=== PATIENT | female | born 1975 | race Caucasian/White ===

== ENCOUNTER 2018-03-27 23:50 | Emergency (ER) | payer OTHER ==
[~2018-03-27] VITALS: Ht 165.1 cm; Wt 69.4 kg
--- NOTE | 2018-03-28 00:55 | ED GENERAL ADULT ---
History of Present Illness General Chief Complaint: Upper Extremity Problem Stated Complaint: ARM SWELLING AND PAIN Source: patient Exam Limitations: poor historian Vital Signs & Intake/Output Vital Signs & Intake/Output ED Intake and Output 03/29 0000 03/28 1200 Intake Total 0 Output Total Balance 0 Intake, Oral 0 Patient 153 lb Weight Allergies Coded Allergies: amoxicillin (UNKNOWN 03/29/18) Penicillins (Severe, GI UPSET 03/29/18) Reconcile Medications Bupropion HCl 100 MG TABLET 1 TAB PO BID anxiety (Reported) Celecoxib 200 MG CAPSULE 1 CAP PO DAILY pain (Reported) Cephalexin (Keflex) 500 MG CAPSULE 1 CAP PO 4 TIMES/DAY INFECTION Clonidine HCl 0.1 MG TABLET 1 TAB PO QPM tremors (Reported) Ibuprofen 800 MG TABLET 1 TAB PO TID PRN pain Lisdexamfetamine Dimesylate (Vyvanse) 60 MG CAPSULE 1 CAP PO QAM adhd ( Reported) Pregabalin (Lyrica) 150 MG CAPSULE 1 CAP PO BID pain (Reported) Quetiapine Fumarate 100 MG TABLET 1 TAB PO QPM anxiety (Reported) Sertraline HCl 100 MG TABLET 1 TAB PO DAILY anxiety (Reported) Sulfamethoxazole/Trimethoprim (Bactrim Ds Tablet) 800 MG-160 MG TABLET 1 TAB PO BID INFECTion Zolpidem Tartrate 10 MG TABLET 1 TAB PO QPMP sleep (Reported) Triage Note: PT TO TRIAGE WITH RIGHT WRIST PAIN SWELLING AND SOME REDDNESS FOR A COUPLE DAYS. PT HAS A HX OF RHEUMATOID ARTHRITIS. DENIES FEVERS. 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 Triage Nurses Notes Reviewed? yes Onset: Gradual Duration: day(s): (4) Timing: ongoing Severity: severe Modifying Factors: Improves With: rest. Worsens With: movement. : No Patient currently breastfeeds: No HPI: This is a 42-year-old female with history of rheumatoid arthritis on multiple immunosuppressive medications, mental illness, prior substance abuse, presented to the emergency department with pain and swelling of the right wrist. Patient states that the pain started on following a night out with her friend in [place]. Patient states that she drank heavily that night and may have fallen on the wrist. She denies any systemic symptoms but complains of severe pain, swelling, decreased movement of the right wrist. On further, repeated questioning, patient states that it is also possible that she may have injected intravenous drugs into the area of her right wrist on Wednesday evening. She thinks that she was using intravenous cocaine but she has not completely sure. She is not sure exactly where she stuck a needle but thinks it may have been either near the base of her thumb or in the area of the distal radius. (Ivan Cameron MD) Past History Travel History Traveled to [place] past 21 day No Medical History Any Pertinent Medical History? 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 No (Ivan Cameron MD) Review of Systems Review of Systems Constitutional: Reports: no symptoms. EENTM: Reports: no symptoms. Respiratory: Reports: no symptoms. Cardiovascular: Reports: no symptoms. GI: Reports: no symptoms. Musculoskeletal: Reports: joint pain. Skin: Reports: erythema. Neurological/Psychological: Reports: no symptoms. (Ivan Cameron MD) Physical Exam Physical Exam General Appearance: well developed/nourished, no apparent distress, alert, awake , anxious Head: atraumatic, normal appearance Eyes: Bilateral: normal appearance. Ears, Nose, Throat: hearing grossly normal, moist mucus membranes Neck: normal inspection, supple, full range of motion Respiratory: no respiratory distress Cardiovascular: regular rate/rhythm Gastrointestinal: soft, non-tender Back: normal inspection, normal range of motion Extremities: normal inspection Neurologic/Psych: no motor/sensory deficits, awake, alert, oriented x 3, normal gait Skin: warm/dry Comments: Patient has swelling, warmth, decreased range of motion to distal radius and proximal right wrist with significant tenderness to palpation. Core Measures ACS in differential dx? No CVA/TIA Diagnosis: No Sepsis Present: No Sepsis Focused Exam Completed? No (Ivan Cameron MD) Progress Differential Diagnoses I considered the following diagnoses in my evaluation of the patient: Fracture, RA flare, septic joint, soft tissue infection, necrotizing fasciitis, gout, pseudogout Plan of Care: Orders Procedure Date/time Status BLOOD CULTURE 06/04 0128 Active PARTIAL THROMBOPLASTIN TIME 03/28 51 Complete PROTHROMBIN TIME 03/28 51 Complete HIGH SENSITIVITY CRP 03/28 51 Complete COMPREHENSIVE METABOLIC PANEL 03/28 51 Complete CBC WITHOUT DIFFERENTIAL 03/28 51 Complete TYPE & SCREEN (NOT X-MATCH) 03/28 51 Complete Current Medications Sig/Daniel Start time Last Medication Dose Stop Time Status Admin Vancomycin HCl 1,500 MG ONCE ONE 03/28 100 CAN 03/28 101 Laboratory Tests 03/28/184: PT 12.1, INR 1.11, APTT 32 03/28/18 0130: Anion Gap 11, Estimated GFR > 60, BUN/Creatinine Ratio 15.0, Glucose 111 H, Calcium 9.7, Total Bilirubin 0.6, AST 76 H, ALT 34, Alkaline Phosphatase 97, C- React Prot High Sens > 15.0 H, Total Protein 7.4, Albumin 4.0, Globulin 3.4, Albumin/Globulin Ratio 1.2, CBC w Diff MAN DIFF ORDERED, RBC 3.66 L, MCV 93.7, MCH 31.8 H, MCHC 33.9, RDW 14.8 H, MPV 8.8, Gran % 83.8 H, Lymphocytes % 10.1 L, Monocytes % 5.1, Eosinophils % 0.7, Basophils % 0.3, Absolute Granulocytes 11.1 H, Absolute Lymphocytes 1.3, Absolute Monocytes 0.7 H, Absolute Eosinophils 0.1, Absolute Basophils 0, Platelet Estimate ADEQUATE, Ovalocytes 1+ Microbiology 03/28 204 BLOOD: Blood Culture - RECD 03/28 120 BLOOD: Blood Culture - RECD We will start with splinting, x-ray wrist, p.o. Motrin, labs, broad-spectrum antibiotics, unable to perform joint aspiration secondary to overlying cellulitis. There is not appear to be an obvious collection on [id number] ultrasound compared to the contralateral side. X-ray of the wrist is noncontributory. Case discussed with on-call orthopedic surgeon Aodlfo Urrutia MD he agrees with plan for broad-spectrum antibiotics and splinting with admission. Care signed out to Dr. Bishop, labs pending. Of note, patient is hesitant to be admitted to the hospital but agrees to stay for lab results. Patient is made aware the fact that this could be a significant infection and, given her immunocompromised status, will almost certainly require inpatient management with IV antibiotics for optimal outcome Initial ED EKG: none Hand-Off Endorsed To: Moses Bishop MD (Ivan Cameron MD) Diagnostic Imaging: Viewed by Me: Radiology Read. Discussed w/RAD: Radiology Read. Radiology Impression: PATIENT: LAURA PADILLA PRESENT AGE: 42 PATIENT ACCOUNT NO: [id number] : 75 LOCATION: [facility] ORDERING PHYSICIAN: Ivan Cameron MD SERVICE DATE: 03/28/18 EXAM TYPE: RAD - XRY-WRIST 2 VIEWS RIGHT EXAMINATION: XR WRIST, RIGHT CLINICAL INFORMATION: Wrist fracture COMPARISON: None TECHNIQUE: Two views of the right wrist. FINDINGS: Osseous alignment is anatomic. There are small calcifications anterior to the distal radius/ulna which have a chronic appearance. No acute fracture is seen in the wrist. Scattered lucencies in the carpal bones and bases of the second through fourth metacarpals are suggestive of cysts. There is suspected soft tissue swelling at the wrist. IMPRESSION: No acute fracture identified. Soft tissue swelling at the wrist. DICTATED BY: Marcos Adler MD DATE/TIME DICTATED:03/28/1849 HOME COMPANION:FLOR DATE/TIME TRANSCRIBED:49 CONFIDENTIAL, DO NOT COPY WITHOUT APPROPRIATE AUTHORIZATION. < Electronically signed in Other Vendor System> SIGNED BY: Marcos Adler MD 03/28/1855 (Moses Bishop MD) Departure Departure Disposition: STILL A PATIENT Condition: Stable Clinical Impression Primary Impression: Soft tissue infection Secondary Impressions: IV drug abuse, Wrist swelling Referrals: Patient Has No Primary Care Dr (PCP/Family) Departure Forms: Customer Survey General Discharge Information (Ivan Cameron MD) Departure Prescriptions: Current Visit Scripts Sulfamethoxazole/Trimethoprim (Bactrim Ds Tablet) 1 TAB PO BID #28 TAB Cephalexin (Keflex) 1 CAP PO 4 TIMES/DAY #56 CAP Ibuprofen 1 TAB PO TID PRN pain #30 TAB Comments 03/28/18, 3:03AM... given her immunosuppression (pt on humira and methotrexate), pt merits admission. However, she is adamant about leving against medical advice. I wrote for keflex/bactrim.. she will follow up if not improving. Pt signed AMA paperwork. Discussed at great length. Resident Co-Sign Statement Statement: ED Attending supervision documentation- [x] I saw and evaluated the patient. I have also reviewed all the pertinent lab results and diagnostic results. I agree with the findings and the plan of care as documented in the Resident's documentation. [] I have reviewed the ED Record and agree with the Resident's documentation. [] Additions or exceptions (if any) to the Resident's note and plan are summarized below: [] (Dario GREER,[facility]) Departure Comments 03/29/2018@0730 hours: Addendum from Dr. Reeder. I received a call from the lab stating that they had resulted one bottle of positive blood cultures, with gram- negative rods. The other bottles were negative. I discussed this with the patient directly over the phone after successfully reaching her at [phone]. She stated that she was feeling improved, was still afebrile, but did have some increased tightness of her arm/hand. I explained the importance of this blood culture and the possibility that it could be the indication of a very early and potentially even fatal infection. She stated that she would be getting follow- up with her PCP and possibly with her specialists at [facility]. I encouraged her to either do that and have them get her culture results, or instructed her to return here for reassessment. She is high risk given her intravenous drug use and her immunocompromise with immunomodulators for her rheumatoid arthritis. She exhibited good understanding. I discussed the case later with the director Dr. Jacques, who will continue to make contact with the patient to ensure adequate follow-up. (Varinder TOMLIN,Raheel) Critical Care Note Critical Care Note Critical Care Time: non-applicable (Rakesh GREER,Ivan)
[2018-03-28 01:42] LABS: ABSOLUTE BASOPHIL COUNT 0 /CUMM (0.0-0.2); ABSOLUTE EOSINOPHIL COUNT 0.1 /CUMM (0.0-0.7); ABSOLUTE GRANULOCYTE CT 11.1 /CUMM (1.4-6.5); ABSOLUTE LYMPH COUNT 1.3 /CUMM (1.2-3.4); ABSOLUTE MONOCYTE COUNT 0.7 /CUMM (0.10-0.60); BASOPHIL % 0.3 % (0.0-2.0); EOSINOPHIL % 0.7 % (0-5); HEMATOCRIT 34.3 % (37-47); MEAN CORPUSCULAR HGB 31.8 PG (27.0-31.0); MEAN CORPUSCULAR HGB CONC 33.9 G/DL (33.0-37.0); MEAN CORPUSCULAR VOLUME 93.7 FL (81.0-99.0); MEAN PLATELET VOLUME 8.8 FL (7.4-10.4); PLATELET COUNT 342 /CUMM (130-400); RBC DISTRIBUTION WIDTH 14.8 % (11.5-14.5); RED BLOOD CELL CT 3.66 /CUMM (4.20-5.40); WHITE BLOOD CELL COUNT 13.3 /CUMM (4.8-10.8)
[2018-03-28 01:44] LABS: GRANULOCYTE % 83.8 % (42.2-75.2)
[2018-03-28 02:20] LABS: PT 12.1 SEC (9.4-12.5); PTT 32 SEC (25-37)
[2018-03-28] MEDS ORDERED: BACTRIM DS TAB1 EACH PO (02:59)
[2018-03-28] MEDS ORDERED: KEFLEX500 M1 PO (02:59)
[2018-03-28] MEDS ORDERED: IBUPROFEN800 M1 PO (03:03)
[2018-03-28 03:48] VITALS: BP 110/70
[2018-03-29] MEDS ORDERED: PERCOCET 5-3251 EACH PO (18:01)
[2018-03-29] MEDS ORDERED: LYRICA150 M1 PO (21:24)
[2018-03-29] MEDS ORDERED: SERTRALINE HCL100 MG PO (21:24)
[2018-03-29] MEDS ORDERED: CELECOXIB200 M1 PO (21:24)
[2018-03-29] MEDS ORDERED: CLONIDINE HCL0.1 MG PO (21:25)
[2018-03-29] MEDS ORDERED: BUPROPION HCL100 M2 PO (21:25)
[2018-03-29] MEDS ORDERED: VYVANSE60 M1 PO (21:26)
[2018-03-29] MEDS ORDERED: QUETIAPINE FUM100 M1 PO (21:26)
[2018-03-29] MEDS ORDERED: ZOLPIDEM TARTRA10 M1 PO (21:26)
== END 2018-03-28 03:51 | disposition left against medical advice (07) ==
LOC: ERH 23:50
PROVIDERS: Student in an Organized Health Care Education/Training Program
DX: L08.9 Local infection of the skin and subcutaneous tissue, unspecified (principal); M25.431 Effusion, right wrist; F14.10 Cocaine abuse, uncomplicated
CPT/HCPCS: 73100-RT; 87040; 87071; J0713; J3370; J7040

== ENCOUNTER 2018-03-29 17:15 | Inpatient (IN) | payer OTHER ==
[~2018-03-29] VITALS: Ht 165.1 cm; Wt 69.4 kg
[~2018-03-29 17:15] MED LIST: BACTRIM DS TAB1 EACH PO; IBUPROFEN800 M1 PO; KEFLEX500 M1 PO
--- NOTE | 2018-03-29 17:46 | ED GENERAL ADULT ---
See Addendum History of Present Illness General Chief Complaint: Hand or Wrist Injury Stated Complaint: RIGHT HAND INFECTION PER PT Source: patient Exam Limitations: no limitations Vital Signs & Intake/Output Vital Signs & Intake/Output Vital Signs Date Time Temp Pulse Resp B/P B/P Pulse O2 O2 Flow FiO2 Mean Ox Delivery Rate 03/29 1742 97.3 105 20 131/70 98 Room Air Allergies Coded Allergies: amoxicillin (UNKNOWN 03/29/18) Penicillins (Severe, GI UPSET 03/29/18) Reconcile Medications Cephalexin (Keflex) 500 MG CAPSULE 1 CAP PO 4 TIMES/DAY INFECTION Ibuprofen 800 MG TABLET 1 TAB PO TID PRN pain Oxycodone HCl/Acetaminophen (Percocet 5-325 MG Tablet) 5 MG-325 MG TABLET 1 TAB PO ONCE PAIN Sulfamethoxazole/Trimethoprim (Bactrim Ds Tablet) 800 MG-160 MG TABLET 1 TAB PO BID INFECTion Triage Note: 42F RETURNS TO ED AFTER CALL BACK FROM DR MATOS FOR BLOOD CULTURES WITH GRAM NEGATIVE RODS. HAD INFECTION TO RIGHT HAND WHICH IS BETTER THAN INITIAL VISIT. HERE FOR ADMISSION. DENIES FEVERS/CHILLS. HAS BEEN ON KEFLEX AND BACTRIM Triage Nurses Notes Reviewed? yes Onset: Abrupt Duration: day(s): Timing: recent history : No Patient currently breastfeeds: No HPI: 03/29/18 5:45 pm 42 year old female presernts to the ED for + blood cultures. s/p IVDA TO RIGHT HAND. HISTORY OF RA, on Humira Past History Travel History Traveled to [place] past 21 day No Medical History Any Pertinent Medical History? 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 No Review of Systems Review of Systems Constitutional: Reports: fever. EENTM: Reports: no symptoms. Respiratory: Denies: short of breath. Cardiovascular: Denies: chest pain. GI: Reports: no symptoms. Genitourinary: Reports: no symptoms. Musculoskeletal: Reports: see HPI. Skin: Reports: see HPI. Neurological/Psychological: Reports: no symptoms. Hematologic/Endocrine: Reports: no symptoms. Immunologic/Allergic: Reports: no symptoms. Physical Exam Physical Exam General Appearance: alert, awake, anxious, mild distress Head: atraumatic, normal appearance Eyes: Bilateral: normal appearance, PERRL, EOMI. Ears, Nose, Throat: normal pharynx, normal ENT inspection, hearing grossly normal Neck: normal inspection, supple Respiratory: normal breath sounds, chest non-tender, no respiratory distress Cardiovascular: regular rate/rhythm, no murmur Peripheral Pulses: 4+ radial (R) Gastrointestinal: non-tender Back: normal range of motion Extremities: swelling, tenderness (dorsal right hand) Neurologic/Psych: no motor/sensory deficits, awake, alert, oriented x 3 Skin: intact (swelling dorsal righ hand) Core Measures ACS in differential dx? No CVA/TIA Diagnosis: No Sepsis Present: No Sepsis Focused Exam Completed? No Progress Differential Diagnoses I considered the following diagnoses in my evaluation of the patient: [ bacteremia, endocarditis, ] Plan of Care: Orders Procedure Date/time Status Add-on Test (ER Only) 03/29 1748 Active Saline Lock 03/29 1747 Active BLOOD CULTURE 03/29 1747 Active HUMAN BETA HCG SCREEN 03/29 1747 Active COMPREHENSIVE METABOLIC PANEL 03/29 1747 Active CBC WITHOUT DIFFERENTIAL 03/29 1747 Complete Current Medications Sig/Daniel Start time Last Medication Dose Stop Time Status Admin Vancomycin HCl 1,000 MG ONCE ONE 03/29 1800 AC Sodium Chloride 250 ML 03/29 1859 (Normal Saline 0.9%) Laboratory Tests 03/29/18 1807: Sodium Pending, Potassium Pending, Chloride Pending, Carbon Dioxide Pending, Anion Gap Pending, BUN Pending, Creatinine Pending, BUN/Creatinine Ratio Pending , Glucose Pending, Calcium Pending, Total Bilirubin Pending, AST Pending, ALT Pending, Alkaline Phosphatase Pending, Total Protein Pending, Albumin Pending, Globulin Pending, Albumin/Globulin Ratio Pending, Total Beta HCG NEGATIVE, CBC w Diff NO MAN DIFF REQ, RBC 3.70 L, MCV 93.3, MCH 31.6 H, MCHC 33.9, RDW 15.2 H , MPV 8.7, Gran % 75.8 H, Lymphocytes % 13.7 L, Monocytes % 7.0, Eosinophils % 3.0, Basophils % 0.5, Absolute Granulocytes 7.9 H, Absolute Lymphocytes 1.4, Absolute Monocytes 0.7 H, Absolute Eosinophils 0.3, Absolute Basophils 0.1 Microbiology 03/29 1815 BLOOD: Blood Culture - RECD 03/29 1807 BLOOD: Blood Culture - RECD Initial ED EKG: none, PENDING Departure Departure Disposition: STILL A PATIENT Condition: Stable Clinical Impression Primary Impression: Bacteremia Referrals: Patient Has No Primary Care Dr (PCP/Family) Departure Forms: Customer Survey General Discharge Information Prescriptions: Current Visit Scripts Oxycodone HCl/Acetaminophen (Percocet 5-325 MG Tablet) 1 TAB PO ONCE #1 TAB Admission Note Spoke With: Solo GREER,Terrygerald Documentation of Exam: Documentation of any treatments & extenuating circumstances including Concerns Regarding Discharge (functional status, medication knowledge or non-compliance, living conditions, etc.) that warrant an admission rather than observation: [ Patient needs IV antibiotics, ID consult, echocardiogram ] Critical Care Note Critical Care Note Critical Care Time: non-applicable
[2018-03-29] MEDS ORDERED: PERCOCET 5-3251 EACH PO (18:01)
[2018-03-29 18:39] LABS: ABSOLUTE BASOPHIL COUNT 0.1 /CUMM (0.0-0.2); ABSOLUTE EOSINOPHIL COUNT 0.3 /CUMM (0.0-0.7); ABSOLUTE GRANULOCYTE CT 7.9 /CUMM (1.4-6.5); ABSOLUTE LYMPH COUNT 1.4 /CUMM (1.2-3.4); ABSOLUTE MONOCYTE COUNT 0.7 /CUMM (0.10-0.60); BASOPHIL % 0.5 % (0.0-2.0); GRANULOCYTE % 75.8 % (42.2-75.2); HEMATOCRIT 34.5 % (37-47); MEAN CORPUSCULAR HGB 31.6 PG (27.0-31.0); MEAN CORPUSCULAR HGB CONC 33.9 G/DL (33.0-37.0); MEAN CORPUSCULAR VOLUME 93.3 FL (81.0-99.0); MEAN PLATELET VOLUME 8.7 FL (7.4-10.4); PLATELET COUNT 346 /CUMM (130-400); RBC DISTRIBUTION WIDTH 15.2 % (11.5-14.5); WHITE BLOOD CELL COUNT 10.4 /CUMM (4.8-10.8)
--- NOTE | 2018-03-29 20:24 | History & Physical ---
Tali GREER,Torin 03/29/182023: General Information and HPI MD Statement: I have seen and personally examined LAURA GALLEGO and documented this H&P. The patient is a 42 year old F who presented with a patient stated chief complaint of [cellulitis]. Source of Information: patient, old records Exam Limitations: no limitations History of Present Illness: Patient is a 42-year-old female with a PMH significant for rheumatoid arthritis on Humira, migraines, anxiety, depression, ADHD, thrombophilia, IV drug abuse with history of heroin abuse, last used approximately 6 years ago, and IV and intranasal cocaine abuse last used recently who presented to the [facility] ED on 03/27/18 for worsening right wrist and hand swelling, pain, rash, she was diagnosed with cellulitis and discharged on p.o. antibiotics. She was called by Dr. Jacques of the ED and told to return due to positive blood cultures. Patient reportedly injected cocaine into multiple sites approximately 1 week prior to presentation, she noted slow progression of redness, swelling, pain of her right hand and wrist up until 03/26/18 when she then took her normal dose of Humira, after which she noticed rapid progression of redness, swelling, pain. She was given Keflex and Bactrim in the [facility] ED, and reported significant improvement since discharge. She continues to report continued improvement leading up to today, she denies any nausea, vomiting, fever, chills, chest pain, shortness of breath, syncope, diaphoresis. Patient requests that her not be informed of her recent IV drug use. 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 Home Who Do You Live With? spouse, child Services at Home: None Primary Language: Ugandan Smoking Status: Current Everyday Smoker ETOH Use: occasional use Illicit Drug Use: cocaine Living Will? no Functional Ability ADLs Independent: dressing, eating, toileting, bathing. Ambulation: independent IADLs Independent: shopping, housework, finances, food prep, telephone, transportation , medication admin. Review of Systems Review of Systems Constitutional: Denies: chills, fever, malaise. EENTM: Denies: blurred vision, double vision, visual changes. Cardiovascular: Denies: chest pain, orthopena, palpitations, syncope. Respiratory: Reports: cough (chronic due to allergies). Denies: short of breath. GI: Denies: abdominal pain, diarrhea, distention, bowel incontinence, melena, nausea. Genitourinary: Denies: discharge, dysuria, frequency, hematuria. Musculoskeletal: Reports: joint pain, joint swelling. Skin: Reports: rash. Exam & Diagnostic Data Last 24 Hrs of Vital Signs/I&O Vital Signs Date Time Temp Pulse Resp B/P B/P Pulse O2 O2 Flow FiO2 Mean Ox Delivery Rate 03/29 2148 98.6 94 20 120/62 97 Room Air 03/29 2112 98.0 90 22 108/66 98 03/29 1742 97.3 105 20 131/70 98 Room Air Intake & Output 03/30 0800 06/ 0000 03/29 1600 Intake Total 120 Output Total Balance 120 Intake, Oral 120 Patient 153 lb Weight Weight Reported by Patient Measurement Method Physical Exam General Appearance Alert, Oriented X3, Cooperative, No Acute Distress Skin dusky erythematous patch on the dorsal R hand extending to the wrist, with underlying induration Skin Temp/Moisture Exam: Warm/Dry Sepsis Skin Exam (color): Normal for Ethnicity HEENT Atraumatic, PERRLA, EOMI, Mucous Membr. moist/pink Cardiovascular Regular Rate, Normal S1, Normal S2, No Murmurs Lungs Clear to Auscultation, Normal Air Movement Abdomen Normal Bowel Sounds, Soft, No Tenderness Neurological Normal Speech, Strength at 5/5 X4 Ext, Normal Tone, Sensation Intact, Cranial Nerves 3-12 NL Extremities track mallory on wrists bilaterally, and distal LLE, limited active range of motion of R wrist secondary to pain Body Front and Back (Adult) 1) dusky erythematous patch Last 24 Hrs of Labs/Wood: Laboratory Tests 03/29/18 1807: Anion Gap 14, Estimated GFR > 60, BUN/Creatinine Ratio 9.0, Glucose 97, Calcium 9.6, Total Bilirubin 0.5, AST 73 H, ALT 32, Alkaline Phosphatase 96, Total Protein 7.6, Albumin 4.2, Globulin 3.4, Albumin/Globulin Ratio 1.2, Total Beta HCG NEGATIVE, CBC w Diff NO MAN DIFF REQ, RBC 3.70 L, MCV 93.3, MCH 31.6 H, MCHC 33.9, RDW 15.2 H, MPV 8.7, Gran % 75.8 H, Lymphocytes % 13.7 L, Monocytes % 7.0, Eosinophils % 3.0, Basophils % 0.5, Absolute Granulocytes 7.9 H, Absolute Lymphocytes 1.4, Absolute Monocytes 0.7 H, Absolute Eosinophils 0.3 , Absolute Basophils 0.1 Microbiology 03/29 184 URINE ROUT: Urine Culture - ORD 03/29 1815 BLOOD: Blood Culture - RECD 03/29 1807 BLOOD: Blood Culture - RECD Diagnostic Data EKG Results SR HR 81 with nonspecific t wave changes diffusely Assessment/Plan Assessment: Patient is a 42-year-old female with a PMH significant for rheumatoid arthritis on Humira, migraines, anxiety, depression, ADHD, thrombophilia, IV drug abuse with history of heroin abuse, last used approximately 6 years ago, and IV and intranasal cocaine abuse last used recently who presented to the [facility] ED on 03/27/18 for worsening right wrist and hand swelling, pain, rash, she was diagnosed with cellulitis and discharged on p.o. antibiotics. Patient reported improvement of her right hand and wrist swelling, redness, pain but was called and told to return to the ED based on positive blood cultures. Vital signs on presentation: T 97.3, P105, RR 20, BP 131/70, saturating 98% on room air Labs: WBC 10.5, H/H 11.7/34.5, platelets 346, sodium 141, potassium 4.5, chloride 105, CO2 22, BUN 9, creatinine 1.0 Problem list #Right hand/wrist cellulitis, with blood cultures from 03/28/18 positive for gram- negative rods-variable #history of IV drug abuse #Chronic medical problems including anxiety, depression, polysubstance abuse, ADHD Plan -Admit to general medicine -IV ceftazidime, patient was given IV vancomycin in the, will hold off for now pending final cultures and sensitivities -follow-up final culture and sensitivity from 03/28/18, follow-up repeat blood cultures -Plastic surgery consult in a.m. -Consider ultrasound to rule out abscess of right wrist/hand -Continue home medications DVT prophylaxis: Subcutaneous heparin, Alps Diet: Regular diet CODE STATUS: Full code As Ranked By This Provider Problem List: 1. Bacteremia 2. IV drug abuse 3. Soft tissue infection Core Measures/Misc (07/11) Acute Coronary Syndrome ACS Diagnosis: No Congestive Heart Failure Congestive Heart Failure Diagnosis No Cerebrovascular Accident CVA/TIA Diagnosis: No VTE (View Protocol) VTE Risk Factors Age>40 No Mechanical VTE Prophylaxis d/t N/A MechProphylax Ordered No VTE Pharm Prophylaxis d/t NA PharmProphylax ordered Sepsis (View protocol) Sepsis Present: No If YES complete Sepsis Event Note If YES complete Sepsis Event Note Melani Mills 03/30/18 0052: General Information and HPI Allergies/Medications Home Med list Bupropion HCl 100 MG TABLET 1 TAB PO BID anxiety (Reported) Celecoxib 200 MG CAPSULE 1 CAP PO DAILY pain (Reported) Cephalexin (Keflex) 500 MG CAPSULE 1 CAP PO 4 TIMES/DAY INFECTION Clonidine HCl 0.1 MG TABLET 1 TAB PO QPM tremors (Reported) Ibuprofen 800 MG TABLET 1 TAB PO TID PRN pain Lisdexamfetamine Dimesylate (Vyvanse) 60 MG CAPSULE 1 CAP PO QAM adhd ( Reported) Pregabalin (Lyrica) 150 MG CAPSULE 1 CAP PO BID pain (Reported) Quetiapine Fumarate 100 MG TABLET 1 TAB PO QPM anxiety (Reported) Sertraline HCl 100 MG TABLET 1 TAB PO DAILY anxiety (Reported) Sulfamethoxazole/Trimethoprim (Bactrim Ds Tablet) 800 MG-160 MG TABLET 1 TAB PO BID INFECTion Zolpidem Tartrate 10 MG TABLET 1 TAB PO QPMP sleep (Reported) Core Measures/Misc (07/11) Sepsis (View protocol) If YES complete Sepsis Event Note If YES complete Sepsis Event Note Resident Review Statement Resident Statement: examined this patient, discussed with corporate communications intern, agreed with corporate communications intern, amended to note Other Findings: Ms Gallego is a 42 year old woman w/ a PMHx of RA (on biologicals+MTx), prior polysubstance abuse who has been sober for the last 5 years, relapsed a few weeks ago with use of cocaine, previously on suboxone(sees Dr. Rod), Thrombophilia, Depression, anxiety return to the ED after being informed that she is bacteremic. She was seen in the emergency room on 03/27/2018 for right upper extremity cellulitis and was discharged on by po abx. She was known to be in her usual state of health until one week ago, used cocaine and did not recall all the incidents, since she was under the influence of alcohol. Reported to have used multiple locations such as right wrist, hand, bilateral lower extremities. Unsure about amount of drugs used. A few days later, she developed severe pain and erythema in right hand and wrist that restricted her mobility of her wrist; which brought her to the emergency room on 03/27/2018. Reported to have used Humira, a few days prior to the ER visit. Blood cultures were drawn, and was recommended to be admitted to the hospital but, she decided to sign out AMA, since she had a child will need attention at home. She was prescribed Keflex and Bactrim, after which she was reported to have improvement in her symptoms. She did not have any fever, chills, worsening erythema. Reported restriction in mobility of her wrist, both flexion and extension, but did not have any pain. Reported mild erythema, and swelling which has been improving compared to the time of presentation a few days ago. Reported occasional cough, but no chest pain, palpitations. No lightheadedness, dizziness. No cardiac history, no valve replacements in the past. At the time of admission-temperature 97.3, pulse rate 105, respiratory 20, blood pressure 131/70, pulse ox 98% on room air. She was given vancomycin, ceftazidime in the ED. General Exam: AAOx3, No acute distress, Skin: No rashes, no breakdown; HEENT: PERRLA, EOMI;Neck: Supple, No JVD ;No cervical lymphadenopathy;CVS: Reg Rate, Normal S1,S2, No MGR;Resp: Normal air entry, no ronchi/rales;Abdomen: Soft, No tenderness, Normal Bowel Sounds;Neuro: Normal Speech, Strength 5/5 b/l x 4 extremities, Sensation intact, CN III-XII NL, Reflexes 2+;Extremities: No cyanosis, no pedal edema; erythema on the extensor surface of hand, mild swelling, with restriction in mobility of right wrist joint, multiple track mallory on the veins of both upper and lower extremities. Pertinent lab findings- WBC 13.3(03/28/18)-->10.4 (03/29/2018), Hb 11.7, platelet 346. Sodium 141, potassium 4.5, bicarbonate 22, anion gap 14 Renal function-BUN 9, creatinine 1.0. Liver chemistries-AST 73, ALT 32, alkaline phosphatase 96. Urinalysis-pending, Utox pending. X-ray-wrist 03/28/2018-No acute fracture identified. Soft tissue swelling at the wrist. Blood cultures 03/28/2018 positive for gram-negative rods-variable. Etiology in this case of progressive spread of erythema, warmth, pain+tenderness likely from superficial infection of skin and subcutaneous tissue causing cellulitis. Given predisposing factors of injection drug use, cellulitis is a likely diagnosis. Since the patient has history of being on immunomodulators, etiology could be from polymicrobial microbes with gram-negative rods, anaerobes , strep and staph. Recent blood cultures grew GNRs, which are variable for Gram stain indicating likely a contaminant with Clostridium species. Plan: - Admit the patient to general medicine service - Monitor vitals every shift. - Repeat Blood cultures 2, - Skin marking in place, for progression/improvement of erythema - Plain radiograph to rule out any abscess formation, subcutaneous gas if symptoms worsen. If necrotizing fasciitis is in the differential, CT should be considered, given her abnormal gram stain in the blood culuture. - Consider ultrasound, to rule out any abscess.- - Analgesics-ceftazidime 1 g every 8, pending repeat cultures. - Extremity elevation -She was given IV vancomycin, and would continue only IV ceftazidime at this time. If the blood cultures, show any growth of gram-positive organisms would add vancomycin stat. -Given the location of cellulitis in hand, plastic surgery consult me to be obtained. - Trend lactate -Continue home medications of Seroquel, Zoloft, Lyrica and Wellbutrin. -Check Utox Housekeeping checklist: #1 DVT prophylaxis-subcutaneous heparin #2 medication reconciliation-complete, but please confirm the dose of Wellbutrin , Seroquel. She is currently on Vyvanse, and unfortunately cannot bring her home medication to be used in the hospital, since this is a controlled substance. Please discuss with psychiatry, if an alternative medication can be used. #3 GI prophylaxis-Protonix when necessary #4 consults-plastic surgeon. Solo GREER, [facility] 03/30/18 0412: Core Measures/Misc (07/11) Sepsis (View protocol) If YES complete Sepsis Event Note If YES complete Sepsis Event Note Attending MD Review Statement Attending Statement Attending MD Statement: examined this patient, discuss w/resident/PA/MOUNTED POLICE OFFICER, agreed w/resident/PA/MOUNTED POLICE OFFICER, reviewed images, amended to note Attending Assessment/Plan: 42 yo F smoker with h/o RA on Prudence and Mtx, MTHFR and prothrombin gene mutation but no h/o VTE, anxiety, depression, ADHD, polysubstance/ IV drug abuse was sober for 5 yrs but relapsed 1 week ago while she was on a vacation at [place], did IV cocaine and binged on alcohol, was seen in the ER on 03/27 for right hand cellulitis- was advised admission but refused, so she was discharged on Keflex and Bactrim. Her blood cultures were reported to ER physician and she was recalled to get admitted. Patient reports that her hand swelling and erythema have improved since on the antibiotics. But she continues to use IV cocaine to her left hand and foot. She does not want her to know about her drug use. She has a past h/o opiate dependence and was on suboxone at one point. Vitals stable. Right hand swelling noted to the dorsal aspect of the hand, with minimal erythema and warmth, restricted ROM of right wrist. Multiple track mallory noted to both hands and feet. Heart S1S2 regular, no murmurs. Labs: no leukocytosis, normocytic anemia, AST 73, UA and Utox pending. EKG: sinus rhythm, TWI in inferior leads V3-5 (no old EKG to compare). Right wrist Xray (03/27): no acute fracture, soft tissue swelling at wrist. Blood cultures (drawn on 03/28): positive for gram negative rods variable. Assessment and plan: 1. Right hand cellulitis improving 2. IV drug user 3. Gram negative bacteremia 4. Rheumatoid arthritis on methotrexate and prudence 5. Polysubstance abuse 6. Anxiety and depression, ADHD 7. Smoker - Admit to General medicine - Elevate right hand - Warm compresses - Repeat blood cultures - Continue IV ceftaz for now, one dose of Vanco given in ER - Follow cultures and taper antibiotics - Pain management with percocet - Consider Plastic surgery consult - Since symptoms are improving, holding off on a ultrasound of the hand to look for abscess - Hold Prudence and methotrexate - Resume all other home meds - Smoking cessation counseling, nicotine patch DVT ppx Lovenox. Full code.
--- NOTE | 2018-03-29 20:48 | Admission Certification ---
Admission Certification Certification Statement - As attending physician, I certify that at the time of - admission, based on clinical presentation, severity of - symptoms, need for further diagnostic testing and - therapeutic interventions, and risk of adverse outcomes - without in-hospital treatment, in my clinical assessment, - this patient requires an acute hospital stay for a minimum - of two nights or longer. I have also considered psychsocial - factors such as support system, advanced age, financial - issues, cognitive issues, and failed out-patient treatments, - past re-admission history, safety of patient, and lack of - compliance as applicable. Specific rationale supporting this admission is: Right hand cellulitis s/p IV drug use, with gram negative bacteremia requires inpatient admission for IV antibiotics, repeat cultures, ID consult.
[2018-03-29] MEDS ORDERED: CELECOXIB200 M1 PO (21:24)
[2018-03-29] MEDS ORDERED: SERTRALINE HCL100 MG PO (21:24)
[2018-03-29] MEDS ORDERED: LYRICA150 M1 PO (21:24)
[2018-03-29] MEDS ORDERED: CLONIDINE HCL0.1 MG PO (21:25)
[2018-03-29] MEDS ORDERED: BUPROPION HCL100 M2 PO (21:25)
[2018-03-29] MEDS ORDERED: ZOLPIDEM TARTRA10 M1 PO (21:26)
[2018-03-29] MEDS ORDERED: QUETIAPINE FUM100 M1 PO (21:26)
[2018-03-29] MEDS ORDERED: VYVANSE60 M1 PO (21:26)
[2018-03-29 21:48] VITALS: BP 120/62
[2018-03-30 06:32] VITALS: BP 118/58
--- NOTE | 2018-03-30 07:13 | PN- Housestaff ---
[facility]: Subjective Follow-up For: Cellulitis Subjective: Patient was seen. Is unhappy about her visit (see event note). Wishes to leave AMA Review of Systems Constitutional: Reports: no symptoms. Objective Last 24 Hrs of Vital Signs/I&O Vital Signs Date Time Temp Pulse Resp B/P B/P Pulse O2 O2 Flow FiO2 Mean Ox Delivery Rate 03/30 0632 98.0 82 118/58 99 Room Air 03/29 2148 98.6 94 20 120/62 97 Room Air 03/29 2112 98.0 90 22 108/66 98 / 1742 97.3 105 20 131/70 98 Room Air Intake & Output 03/30 1600 03/30 0800 03/30 0000 Intake Total 360 120 Output Total Balance 360 120 Intake, Oral 360 120 Patient 153 lb Weight Weight Reported by Patient Measurement Method Physical Exam General Appearance: Alert, Oriented X3, Mild Distress, uncooperative Skin: No Rashes, No Breakdown Skin Temp/Moisture Exam: Warm/Dry Sepsis Skin Exam (color): Normal for Ethnicity HEENT: Atraumatic Cardiovascular: Normal S1, Normal S2, No Murmurs Lungs: Normal Air Movement Abdomen: Soft, No Tenderness Neurological: Normal Speech Assessment/Plan Assessment: 42-year-old female with a PMH significant for rheumatoid arthritis on Humira, migraines, anxiety, depression, ADHD, thrombophilia, IV drug abuse with history of heroin abuse, last used approximately 6 years ago, and IV and intranasal cocaine abuse last used recently who presented to the [facility] ED on 03/27 for worsening right wrist and hand swelling, pain, rash, she was diagnosed with cellulitis and discharged on p.o. antibiotics. She was called by Dr. Jacques of the ED and told to return due to positive blood cultures. Assessment: 1. GNR Bacteremia 2. Cellulitis Plan: * patient wishes to leave AMA * Recommendations to stay inpatient were discussed. Shows undestanding of her condition but wishes to leave. * Counselled extensively to visit another healthcare facility if symptoms worsen. * Code: Full Code Problem List: 1. Bacteremia Pain Ratin Pain Location: none Pain Goal: Remain pain free Pain Plan: none Tomorrow's Labs & Rationales: none Ra GREER,Bertha 03/30/18 1055: Attending MD Review Statement Attending Statement Attending Assessment/Plan: I did not see this patient as she signed the AMA paper work and left before I could see her.
[2018-03-30 08:12] LABS: ABSOLUTE BASOPHIL COUNT 0 /CUMM (0.0-0.2); ABSOLUTE EOSINOPHIL COUNT 0.5 /CUMM (0.0-0.7); ABSOLUTE GRANULOCYTE CT 3.7 /CUMM (1.4-6.5); ABSOLUTE LYMPH COUNT 2.9 /CUMM (1.2-3.4); BASOPHIL % 0.3 % (0.0-2.0); EOSINOPHIL % 6.4 % (0-5); GRANULOCYTE % 45.1 % (42.2-75.2); HEMATOCRIT 29.9 % (37-47); MEAN CORPUSCULAR HGB CONC 33.1 G/DL (33.0-37.0); MEAN CORPUSCULAR VOLUME 93.7 FL (81.0-99.0); MEAN PLATELET VOLUME 9.1 FL (7.4-10.4); PLATELET COUNT 311 /CUMM (130-400); RBC DISTRIBUTION WIDTH 14.6 % (11.5-14.5); WHITE BLOOD CELL COUNT 8.1 /CUMM (4.8-10.8)
--- NOTE | 2018-03-30 13:11 | Event Note ---
Event Note Event Note: Situation: patient wishes to leave AMA Brief: Around 2am last night, patient was found to leave the hospital premises. Given the situation, she was informed that a search of her belongings will need to be conducted along with change of clothing to blue scrubs as she left the hospital while still a patient. Patient is upset with the situation and does not wishes her belongings to be searched. She expresses displeasure regarding her experience in the hospital. She is states that she received her night medications and a meal extremely late last night which interferred in her sleep schedule. Expresses explicitly that she does not want a search of her belongings. A/R: patient was explained the reasoning for above, however, she wishes to leave. Recommendations to stay inpatient were discussed. Potential complications with premature discharge were discussed. Patient shows good understanding of her condition. She was advised to return to the ED or go to another healthcare facility, should she change her mind or her condition deteriorates.
--- NOTE | 2018-03-30 13:27 | Discharge Summary ---
Visit Information Visit Dates Admission Date: 03/29/18 Discharge Date: 03/30/18 Hospital Course Course Attending Physician: Ra GREER,Bertha Primary Care Physician: Patient Has No Primary Care Dr Hospital Course: Ms Vazquez is a 42-year-old female with a PMH significant for rheumatoid arthritis on Humira, migraines, anxiety, depression, ADHD, thrombophilia, IV drug abuse who initially presented to the [facility] ED on 03/27/18 for worsening right wrist and hand swelling, pain, rash. At the time, she was discharged from the ED on p.o. antibiotics. She was called back in after she was found to have blood cultures positive for GNR. She was seen for: 1. Right Hang Cellulitis 2. GNR Bactermia On admission, patient was started IV Ceftazidime and IV Vancomycin. Repeat blood cultures were obtained. Unfortunately, in the am the patient wished to leave AMA. Recommendations to stay inpatient were discussed. She was explained the potential risks to her health given her underlying blood infection. She showed good understanding of the situation. She was recommended to return to the ED or visit another facility should she change her mind or if her condition deteriorated. Allergies: Coded Allergies: amoxicillin (UNKNOWN 03/29/18) Penicillins (Severe, GI UPSET 03/29/18) Disposition Summary Disposition Principal Diagnosis: GNR Bacteremia Cellulitis Additional Diagnosis: rheumatoid arthritis migraines anxiety depression ADHD thrombophilia Discharge Disposition: left against medical adv Discharge Instructions General Discharge Information Code Status: Full Code Patient's Diet: Regular Patient's Activity: As tolerated Follow-Up Instructions/Appts: Please return to the ED or visit another hospital for any worsening symptoms or concerns. Medications at Discharge Discharge Medications: Continue taking these medications: Sulfamethoxazole/Trimethoprim (Bactrim Ds Tablet) 800 MG-160 MG TABLET 1 Tablet ORAL TWICE DAILY Qty = 28 Cephalexin (Keflex) 500 MG CAPSULE 1 Capsule ORAL 4 TIMES A DAY Qty = 56 Ibuprofen (Ibuprofen) 800 MG TABLET 1 Tablet ORAL THREE TIMES DAILY as needed for pain Qty = 30 Pregabalin (Lyrica) 150 MG CAPSULE 1 Capsule ORAL TWICE DAILY Qty = 90 Celecoxib (Celecoxib) 200 MG CAPSULE 1 Capsule ORAL DAILY Qty = 60 Sertraline HCl (Sertraline HCl) 100 MG TABLET 1 Tablet ORAL DAILY Qty = 30 Bupropion HCl (Bupropion HCl) 100 MG TABLET 1 Tablet ORAL TWICE DAILY Qty = 60 Clonidine HCl (Clonidine HCl) 0.1 MG TABLET 1 Tablet ORAL Every night Qty = 60 Zolpidem Tartrate (Zolpidem Tartrate) 10 MG TABLET 1 Tablet ORAL Every night as needed Qty = 30 Lisdexamfetamine Dimesylate (Vyvanse) 60 MG CAPSULE 1 Capsule ORAL Every Morning Qty = 30 Quetiapine Fumarate (Quetiapine Fumarate) 100 MG TABLET 1 Tablet ORAL Every night Qty = 90 Copies To: none
--- NOTE | 2018-03-30 13:29 | Patient Discharge Instructions ---
Discharge Instructions General Discharge Information You were seen/treated for: Cellulitis bacteremia Special Instructions: Please return to the ED or visit another hospital for any worsening symptoms or concerns. Diet Continue normal diet: Yes Activity Full Activity/No Limits: Yes Acute Coronary Syndrome Inclusion Criteria At DC or during hospital stay patient has or had the following: ACS DIAGNOSIS No Discharge Core Measures Meds if any: Prescribed or Continued at Discharge Meds if any: NOT Prescribed or Continued at Discharge Congestive Heart Failure Inclusion Criteria At DC or during hospital stay patient has or had the following: CHF DIAGNOSIS No Discharge Core Measures Meds if any: Prescribed or Continued at Discharge Meds if any: NOT Prescribed or Continued at Discharge Cerebrovascular accident Inclusion Criteria At DC or during hospital stay patient has or had the following: CVA/TIA Diagnosis No Discharge Core Measures Meds if any: Prescribed or Continued at Discharge Meds if any: NOT Prescribed or Continued at Discharge Venous thromboembolism Inclusion Criteria VTE Diagnosis No VTE Type NONE VTE Confirmed by (Test) NONE Discharge Core Measures - Per Current guidelines, there needs to be overlap - treatment for the first 5 days of Warfarin therapy. - If discharged on Warfarin prior to 5 days of - overlap therapy, the patient will need to be - assessed for post discharge needs including - *Post discharge parental anticoagulation - *Warfarin and/or parental anticoagulation education - *Follow up date to check INR post discharge At least 5 days overlap therapy as Inpatient No Meds if any: Prescribed or Continued at Discharge Note: Overlap Therapy is Warfarin and Anticoagulant Meds if any: NOT Prescribed or Continued at Discharge
== END 2018-03-30 09:02 | disposition left against medical advice (07) | DRG 603 ==
LOC: ERH 17:15 → ERHI 18:49 → ENRESERV 20:37 → ENTRNSPT 21:09 → EDTRNSPTSTS 21:30 → EDTRNSPT 21:30 → 2NB 21:36 → CMPTRNSPT 21:45 → 2NB 03-30 07:42
PROVIDERS: Emergency Medicine; Internal Medicine Endocrinology, Diabetes & Metabolism
DX: L03.113 Cellulitis of right upper limb (principal); F41.9 Anxiety disorder, unspecified; F32.9 Major depressive disorder, single episode, unspecified; F90.9 Attention-deficit hyperactivity disorder, unspecified type; F14.90 Cocaine use, unspecified, uncomplicated; M06.9 Rheumatoid arthritis, unspecified; Z88.1 Allergy status to other antibiotic agents; Z88.0 Allergy status to penicillin; F11.10 Opioid abuse, uncomplicated; B96.89 Other specified bacterial agents as the cause of diseases classified elsewhere; Z53.21 Procedure and treatment not carried out due to patient leaving prior to being seen by health care provider
CPT/HCPCS: 2NBSP; 36592; 80307; 82436; 87040; 87071; 87086; 93005; 93010; 96374; J0713; J1644; J1885; J3370; J7040